=== PATIENT | female | born 1980 | race Caucasian/White ===

== ENCOUNTER 2024-09-12 03:33 | Emergency (ER) | payer OTHER ==
[~2024-09-12] VITALS: Ht 165.1 cm; Wt 69.0 kg
[2024-09-12 03:36] VITALS: BP 114/81; PULSE 100; RESP 18; TEMP 98.6; O2SAT 97
[2024-09-12 04:09] LABS: BASOPHILS % 0.2 % (0.0-2.0); EOSINOPHILS % 0.2 % (0.0-5.0); HEMATOCRIT. 44.2 % (36.0-48.0); LYMPHOCYTES % 8.5 % (20.0-50.0); MEAN CORPUSCULAR HEMOGLOBIN 28.7 pg (28.0-32.0); MEAN CORPUSCULAR HGB CONC 31.7 g/dL (31.0-37.0); MEAN CORPUSCULAR VOLUME 90.5 fL (81.0-99.0); MEAN PLATELET VOLUME 7.7 fl (7.4-10.4); MONOCYTES % 10.3 % (2.0-8.0); NEUTROPHILS % 80.8 % (40.0-76.0); PLATELET 344 x1000/uL (130-400); RED BLOOD CELL COUNT 4.89 mill/uL (4.2-5.4); RED CELL DISTRIBUTION WIDTH 13.8 % (11.6-14.6); WHITE BLOOD COUNT 18.6 x1000/uL (4.5-11.0)
[2024-09-12 04:14] LABS: CARBON DIOXIDE 24 mEq/L (21-32); CHLORIDE 101 mEq/L (98-107); SODIUM 131 mEq/L (136-145)
[2024-09-12 04:15] LABS: CALCIUM 9.3 mg/dL (8.7-10.4)
[2024-09-12 04:19] LABS: CREATININE 0.7 mg/dL (0.6-1.0)
[2024-09-12 04:20] LABS: GLUCOSE 136 mg/dL (70-105); UREA NITROGEN BLOOD 7 mg/dL (9-23)
[2024-09-12 04:21] LABS: ALANINE AMINOTRANSFERASE 42 IU/L (10-49); ALBUMIN 4.4 g/dL (3.2-4.8); ASPARTATE AMINOTRANSFERASE 38 IU/L (<34)
[2024-09-12 04:22] LABS: BILIRUBIN DIRECT 0.1 mg/dL (<=3.0); BILIRUBIN TOTAL 0.4 mg/dL (0.1-1.0); PROTEIN TOTAL 8.3 g/dL (6.0-8.3)
[2024-09-12 04:31] LABS: HCG SCREEN NEGATIVE
[2024-09-12 04:43] LABS: ETHANOL BLOOD < 10 mg/dL (<10)
[2024-09-12] MEDS: SODIUM CHLORIDE 0.9% 1,000 ML IV ONE (04:45)
[2024-09-12] MEDS: ONDANSETRON HCL 4MG/2ML INJ IV ONE (04:46)
[2024-09-12] MEDS: KETOROLAC 15MG/ML VIAL IV ONE (04:48)
[2024-09-12 08:11] LABS: CLARITY URINE CLEAR (CLEAR); COLOR URINE DARK YELLOW (YELLOW); GLUCOSE URINE NEGATIVE (NEGATIVE); KETONES URINE 1+ (NEGATIVE); LEUKOCYTE ESTERASE URINE NEGATIVE (NEGATIVE); NITRITE URINE NEGATIVE (NEGATIVE); OCCULT BLOOD URINE 3+ (NEGATIVE); PROTEIN URINE 1+ (NEGATIVE); SPECIFIC GRAVITY URINE 1.083 (1.005-1.030)
[2024-09-12 08:33] LABS: *AMPHETAMINES SCREEN URINE PRESUMPTIVE POSITIVE (NEGATIVE); *BARBITURATES SCREEN URINE NEGATIVE (NEGATIVE); *BENZODIAZEPINES SCREEN URINE NEGATIVE (NEGATIVE); *COCAINE SCREEN URINE NEGATIVE (NEGATIVE); CANNABINOID URINE SCREEN PRESUMPTIVE POSITIVE (NEGATIVE); ECSTASY MDMA SCREEN URINE NEGATIVE (NEGATIVE); METHADONE URINE SCREEN NEGATIVE (NEGATIVE); OPIATES URINE SCREEN NEGATIVE (NEGATIVE); PHENCYCLIDINE URINE SCREEN PRESUMTIVE POSITIVE (NEGATIVE)
[2024-09-12 08:53] LABS: SQUAMOUS EPITHELIAL CELL URINE 2+ /lpf (RARE/1+)
[2024-09-12 08:54] LABS: BACTERIA URINE 1+
[2024-09-12 08:55] LABS: WBC URINE 0-2 /hpf (0-2)
[2024-09-12 08:56] LABS: PROTHROMBIN TIME 11.5 sec (9.6-11.0)
[2024-09-12] MEDS ORDERED: CEPH500C2 MT (09:00)
[2024-09-12] MEDS ORDERED: IBUP-2029 MT (09:00)
[2024-09-12] MEDS ORDERED: IOHEXOL-300 100 ML BOTTLE ONE (12:23)
== END 2024-09-12 09:15 | disposition home or self-care (01) ==
LOC: ER 03:33
DX: N39.0 Urinary tract infection, site not specified (principal)
CPT/HCPCS: 80076; 80305; 80048; 81003; 80320; 84703; 83690; 85025; 85610; 36415; 74177; 96361; 96374; 96375; 99285; Q9967; J1885; J2405; J7030; G0480